=== PATIENT | female | born 1995 | race American Indian/Alaskan Native ===

== ENCOUNTER 2017-08-06 00:02 | Inpatient (IN) | payer MEDICAID ==
[2017-08-06] MEDS ORDERED: Misoprostol 25 MCG (1/4 of 100 MCG) Tab ONE (10:21)
[2017-08-06] MEDS: Misoprostol 25 MCG (1/4 of 100 MCG) Tab VAG SCH ×5 (10:40→22:49)
[2017-08-06] MEDS ORDERED: Sodium Chloride 0.9% 10 ML Syringe FLUSH PRN (10:43)
[2017-08-06] MEDS ORDERED: Oxytocin/Lactated Ringers 20 UNIT/1,000 ML BAG IV SCH (11:15)
[2017-08-06] MEDS ORDERED: diphenhydrAMINE 50 MG/ML SDV IVPUSH PRN (12:28)
[2017-08-06] MEDS ORDERED: ePHEDrine 50 MG/ML SDV IVPUSH PRN (12:28)
[2017-08-06] MEDS ORDERED: fentaNYL 100 MCG/2 ML SDV EPIDUR PRN (12:28)
[2017-08-06] MEDS ORDERED: Ondansetron 4 MG/2 ML SDV IVPUSH PRN (12:28)
--- NOTE | 2017-08-06 12:31 | PCM.PREANE ---
Preanesthetic Assessment - Anesthesia/Transfusion/Family Hx Anesthesia History: No Prior Anesthesia Family History of Anesthesia Reaction: No Transfusion History: No Prior Transfusion(s) - Review of Systems General: No Symptoms Pulmonary: No Symptoms Cardiovascular: No Symptoms Gastrointestinal: Other (Heart burn with ) Neurological: No Symptoms Other: Reports: None - Physical Assessment Respiratory Rate: 16 Vital Signs: Last Vital Signs Temp 36.3 C 08/06/17 10:19 Pulse 105 H 08/06/17 10:19 Resp 16 08/06/17 10:19 BP 130/89 08/06/17 10:19 Pulse Ox Height: 1.65 m Weight: 105.097 kg ASA Class: 2 Mental Status: Alert & Oriented x3 Airway Class: Mallampati = 1 Dentition: Reports: Normal Dentition Thyro-Mental Finger Breadths: 3 Mouth Opening Finger Breadths: 3 ROM/Head Extension: Full Lungs: Clear to Auscultation, Normal Respiratory Effort Cardiovascular: Regular Rate, Regular Rhythm - Lab Values: Laboratory Last Values WBC 9.34 K/mm3 (3.98-10.04) 08/06/17 11:06 RBC 4.18 M/mm3 (3.98-5.22) 08/06/17 11:06 Hgb 12.8 gm/L (11.2-15.7) 08/06/17 11:06 Hct 37.2 % (34.1-44.9) 08/06/17 11:06 MCV 89.0 fl (79.4-94.8) 08/06/17 11:06 MCH 30.6 pg (25.6-32.2) 08/06/17 11:06 MCHC 34.4 g/dl (32.2-35.5) 08/06/17 11:06 RDW Std Deviation 40.3 fL (36.4-46.3) 08/06/17 11:06 Plt Count 185 K/mm3 (182-369) 08/06/17 11:06 MPV 11.9 fl (9.4-12.3) 08/06/17 11:06 Neut % (Auto) 79.7 % (34.0-71.1) H 08/06/17 11:06 Lymph % (Auto) 14.1 % (19.3-51.7) L 08/06/17 11:06 Angelina % (Auto) 5.5 % (4.7-12.5) 08/06/17 11:06 Eos % (Auto) 0.3 (0.7-5.8) L 08/06/17 11:06 Baso % (Auto) 0.1 % (0.1-1.2) 08/06/17 11:06 Neut # (Auto) 7.44 K/mm3 (1.56-6.13) H 08/06/17 11:06 Lymph # (Auto) 1.32 K/mm3 (1.18-3.74) 08/06/17 11:06 Angelina # (Auto) 0.51 K/mm3 (0.24-0.36) H 08/06/17 11:06 Eos # (Auto) 0.03 K/mm3 (0.04-0.36) L 08/06/17 11:06 Baso # (Auto) 0.01 K/mm3 (0.01-0.08) 08/06/17 11:06 - Allergies Allergies/Adverse Reactions: Allergies Allergy/AdvReac Type Severity Reaction Status Date / Time No Known Allergies Allergy Verified 08/06/17 10:42 - Acknowledgements Anesthesia Type Planned: Epidural Pt an Appropriate Candidate for the Planned Anesthesia: Yes Alternatives and Risks of Anesthesia Discussed w Pt/Guardian: Yes Pt/Guardian Understands and Agrees with Anesthesia Plan: Yes PreAnesthesia Questionnaire Gastrointestinal History: Reports: GERD, Other (See Below) 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: - SUBSTANCE USE Smoking Status *Q: Never Smoker Recreational Drug Use History: Yes Recreational Drug Type: Reports: Marijuana/Hashish - HOME MEDS Home Medications: Home Meds Calcium Carbonate [Tums] 750 mg PO 08/06/17 [History] Vits #93/Iron Fum/FA [ Formula Tablet] 08/06/17 [History] Ranitidine [Zantac] 150 mg .XX 08/06/17 [History] - CURRENT (IN HOUSE) MEDS Current Meds: Current Medications Diphenhydramine HCl (Benadryl) 25 mg IVPUSH Q6H PRN PRN Reason: Pruritis Ephedrine Sulfate (Ephedrine Sulfate) 5 mg IVPUSH ASDIRECTED PRN PRN Reason: Hypotension Fentanyl (Sublimaze) 100 mcg EPIDUR ONETIME PRN PRN Reason: Pain Fentanyl/Bupivacaine HCl (Fentanyl/Bupivacaine/Ns 2 Mcg-0.125% 100 Ml) 100 ml EPIDUR ASDIRECTED ALLYSSA Lactated Ringer's (Ringers, Lactated) 1,000 mls @ 100 mls/hr IV ASDIRECTED ALLYSSA Oxytocin/Lactated Ringer's (Pitocin In Lr 20 Units/1,000 Ml) 20 unit in 1,000 mls @ 500 mls/hr IV TITRATE ALLYSSA PRN Reason: Protocol Misoprostol (Cytotec) 25 mcg VAG Q3H [facility] Stop: 08/06/17 16:41 Last Admin: 08/06/17 10:40 Dose: 25 mcg Ondansetron HCl (Zofran) 4 mg IVPUSH ONETIME PRN PRN Reason: Nausea/Vomiting Sodium Chloride (Saline Flush) 10 ml FLUSH ASDIRECTED PRN PRN Reason: Keep Vein Open Discontinued Medications Misoprostol (Cytotec) Confirm Administered Dose 25 mcg .ROUTE .[facility] Stop: 08/06/17 10:22 Last Admin: 08/06/17 10:54 Dose: Not Given
--- NOTE | 2017-08-06 13:16 | PCM.SN ---
- Free Text/Narrative Note: Cervix 0-1/50/S/P/V-3 Cat I FHR. First Cytotec 25 mcg placed at 1041.
--- NOTE | 2017-08-06 13:22 | PCM.LDHP ---
<Diego Brand - Last Filed: 08/06/17 13:14> L&D History of Present Illness - General Date of Service: 08/06/17 Admit Problem/Dx: Patient Status Order with Admit Dx/Problem 08/06/17 10:43 Patient Status [ADT] Routine Admission Diagnosis/Problem Admission Diagnosis/Problem Source of Information: Patient History Limitations: Reports: No Limitations - History of Present Illness Introduction:: Nancy Martinez is pleasant 22 year old female with an CANDIDA of 07/31/2017 who presents to labor and delivery for induction. She is estimated to be at 40 weeks 6 days gestation. GBS was tested on 07/31/17 and the results were negative. She denies having any contractions this morning but does report that she noticed the onset of abdominal pain that she describes as dull and rates as a 2 out of 10. She denies any vaginal bleeding and reports she has not noticed any leakage of fluid. 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: Social & Family History - Family History HEENT: Reports: None Cardiac: Reports: None Respiratory: Reports: None GI: Reports: None : Reports: None OBGYN: Reports: None Musculoskeletal: Reports: None Neurological: Reports: None Psychiatric: Reports: None Endocrine/Metabolic: Reports: None Hematologic: Reports: None Immunologic: Reports: None Dermatologic: Reports: None Oncologic: Reports: None - Tobacco Use Smoking Status *Q: Never Smoker - Recreational Drug Use Recreational Drug Use: Yes Drug Use in Last 12 Months: Yes Recreational Drug Type: Reports: Marijuana/Hashish H&P Review of Systems - Review of Systems: General: Reports: Fatigue Pulmonary: Reports: Shortness of Breath Cardiovascular: Reports: No Symptoms Gastrointestinal: Reports: Abdominal Pain (Nancy reports onset of abdominal pain and discomfort that started this am. She describes the pain as dull, rates it as a 2/10, and denies any radiation fo the pain elsewhere) Genitourinary: Reports: No Symptoms Musculoskeletal: Reports: No Symptoms Skin: Reports: No Symptoms Psychiatric: Reports: No Symptoms (Patient denies any depression or anxiety) Neurological: Reports: No Symptoms L&D Exam - Vital Signs Vital Signs: Last Vital Signs Temp 97.3 F 08/06/17 10:19 Pulse 105 H 08/06/17 10:19 Resp 16 08/06/17 12:31 BP 130/89 08/06/17 10:19 Pulse Ox Weight: 231 lb 11.2 oz - OB Specific Fundal Height In cm: 40 Movement: Active Heart Tones: Present Heart Tones per Min: 140 Heart Rate (FHR) Variability: Moderate (6-25 bmp) - Exam General: Alert, Oriented HEENT: Conjunctiva Clear, EACs Clear, EOMI, Hearing Intact, Mucosa Moist & [place] , Posterior Pharynx Clear, Pupils Equal, Pupils Reactive, PERRLA Neck: Supple, Trachea Midline Lungs: Clear to Auscultation, Normal Respiratory Effort Cardiovascular: Regular Rate, Regular Rhythm GI/Abdominal Exam: Normal Bowel Sounds, Soft, Non-Tender, No Organomegaly, No Distention, No Mass Back Exam: Normal Inspection, Full Range of Motion Extremities: Normal Inspection, Normal Range of Motion, Non-Tender, Pedal Edema Skin: Warm, Dry, Intact Neurological: Reflexes Equal Bilateral, Normal Speech, Normal Tone DTR: 2+: Bicep (L), Bicep (R), Tricep (L), Tricep (R), Patella (L), Patella (R) Psychiatric: Alert, Normal Affect, Normal Mood - Patient Data Lab Results Last 24 hrs: Laboratory Results - last 24 hr 08/06/17 Range/Units 11:06 WBC 9.34 (3.98-10.04) K/mm3 RBC 4.18 (3.98-5.22) M/mm3 Hgb 12.8 (11.2-15.7) gm/L Hct 37.2 (34.1-44.9) % MCV 89.0 (79.4-94.8) fl MCH 30.6 (25.6-32.2) pg MCHC 34.4 (32.2-35.5) g/dl RDW Std Deviation 40.3 (36.4-46.3) fL Plt Count 185 (182-369) K/mm3 MPV 11.9 (9.4-12.3) fl Neut % (Auto) 79.7 H (34.0-71.1) % Lymph % (Auto) 14.1 L (19.3-51.7) % [place] % (Auto) 5.5 (4.7-12.5) % Eos % (Auto) 0.3 L (0.7-5.8) Baso % (Auto) 0.1 (0.1-1.2) % Neut # (Auto) 7.44 H (1.56-6.13) K/mm3 Lymph # (Auto) 1.32 (1.18-3.74) K/mm3 [place] # (Auto) 0.51 H (0.24-0.36) K/mm3 Eos # (Auto) 0.03 L (0.04-0.36) K/mm3 Baso # (Auto) 0.01 (0.01-0.08) K/mm3 Result Diagrams: 08/06/17 11:06 Orders Last 24hrs: Active Orders 24 hr Category Date Time Status Patient Status [ADT] Routine ADT 08/06/17 10:43 Active Activity as Tolerated [RC] PFP Care 08/06/17 10:43 Active Communication Order [RC] ASDIRECTED Care 08/06/17 10:43 Active Heart Tones [RC] ASDIRECTED Care 08/06/17 10:43 Active Insert Ryder Catheter [Insert Urinary Catheter] [OM.PC] Care 08/06/17 10:45 Ordered Q24H Notify Provider [RC] ASDIRECTED Care 08/06/17 12:28 Active Notify Provider [RC] PFP Care 08/06/17 10:43 Active Notify Provider [RC] PRN Care 08/06/17 10:43 Active PCEA Epidural [RC] ASDIRECTED Care 08/06/17 10:45 Active Peripheral IV Care [RC] . DIRECTED Care 08/06/17 10:43 Active Urinary Catheter Assessment [RC] ASDIRECTED Care 08/06/17 10:45 Active Vital Signs [RC] PER UNIT ROUTINE Care 08/06/17 10:43 Active Clear Liquid Diet [DIET] Diet 08/06/17 Lunch Active TYPE AND SCREEN [BBK] Stat Lab 08/06/17 11:06 Received Bupivacaine/fentaNYL/NS [fentaNYL/Bupivacaine/NS 2 MCG- Med 08/06/17 12:30 Active 0.125% 100 ML] 100 ml EPIDUR ASDIRECTED Lactated Ringers [Ringers, Lactated] 1,000 ml Med 08/06/17 10:45 Active IV ASDIRECTED Misoprostol [Cytotec] Med 08/06/17 10:40 Active 25 mcg VAG Q3H Ondansetron [Zofran] Med 08/06/17 12:28 Active 4 mg IVPUSH ONETIME PRN Oxytocin/Lactated Ringers [Pitocin in LR 20 Units/1,000 Med 08/06/17 11:15 Active ML] 20 unit in 1,000 ml IV TITRATE Ranitidine Med 08/06/17 13:15 Unverified DOSE UNIT RTE FREQ Sodium Chloride 0.9% [Saline Flush] Med 08/06/17 10:43 Active 10 ml FLUSH ASDIRECTED PRN diphenhydrAMINE [Benadryl] Med 08/06/17 12:28 Active 25 mg IVPUSH Q6H PRN ePHEDrine [ePHEDrine Sulfate] Med 08/06/17 12:28 Active 5 mg IVPUSH ASDIRECTED PRN fentaNYL [Sublimaze] Med 08/06/17 12:28 Active 100 mcg EPIDUR ONETIME PRN Electronic Heart Tones Ext w TOCO [WOMSER] Oth 08/06/17 10:43 Ordered Routine Electronic Heart Tones Internal [WOMSER] Per Unit Oth 08/06/17 10:43 Ordered Routine Peripheral IV Insertion Adult [OM.PC] Routine Oth 08/06/17 10:43 Ordered Resuscitation Status Routine Resus Stat 08/06/17 10:43 Ordered Medication Orders Diphenhydramine HCl (Benadryl) 25 mg IVPUSH Q6H PRN PRN Reason: Pruritis Ephedrine Sulfate (Ephedrine Sulfate) 5 mg IVPUSH ASDIRECTED PRN PRN Reason: Hypotension Fentanyl (Sublimaze) 100 mcg EPIDUR ONETIME PRN PRN Reason: Pain Fentanyl/Bupivacaine HCl (Fentanyl/Bupivacaine/Ns 2 Mcg-0.125% 100 Ml) 100 ml EPIDUR ASDIRECTED ALLYSSA Lactated Ringer's (Ringers, Lactated) 1,000 mls @ 100 mls/hr IV ASDIRECTED ALLYSSA Oxytocin/Lactated Ringer's (Pitocin In Lr 20 Units/1,000 Ml) 20 unit in 1,000 mls @ 500 mls/hr IV TITRATE ALLYSSA PRN Reason: Protocol Misoprostol (Cytotec) 25 mcg VAG Q3H [facility] Stop: 08/06/17 22:41 Last Admin: 08/06/17 10:40 Dose: 25 mcg Ondansetron HCl (Zofran) 4 mg IVPUSH ONETIME PRN PRN Reason: Nausea/Vomiting Sodium Chloride (Saline Flush) 10 ml FLUSH ASDIRECTED PRN PRN Reason: Keep Vein Open <Lamonte Cheng - Last Filed: 08/06/17 19:37> L&D History of Present Illness - General Admit Problem/Dx: Patient Status Order with Admit Dx/Problem 08/06/17 10:43 Patient Status [ADT] Routine Admission Diagnosis/Problem Admission Diagnosis/Problem Source of Information: Patient History Limitations: Reports: No Limitations - History of Present Illness Improves with: Reports: None Worsens with: Reports: None Associated Symptoms: Reports: N Past Medical History : 1 Para: 0 (0000) LMP (Approximate): H&P Review of Systems - Review of Systems: Review Of Systems: See Below General: Reports: No Symptoms HEENT: Reports: No Symptoms Pulmonary: Reports: No Symptoms Cardiovascular: Reports: No Symptoms Gastrointestinal: Reports: No Symptoms Genitourinary: Reports: No Symptoms Musculoskeletal: Reports: No Symptoms Skin: Reports: No Symptoms Psychiatric: Reports: No Symptoms Neurological: Reports: No Symptoms Hematologic/Lymphatic: Reports: No Symptoms Immunologic: Reports: No Symptoms L&D Exam - Exam Exam: See Below - Vital Signs Vital Signs: Last Vital Signs Temp 97.3 F 08/06/17 10:19 Pulse 105 H 08/06/17 10:19 Resp 16 08/06/17 12:31 BP 130/89 08/06/17 10:19 Pulse Ox - Patient Data Lab Results Last 24 hrs: Laboratory Results - last 24 hr 03/01/18 03/01/18 03/01/18 Range/Units 11:06 11:06 17:27 WBC 9.34 (3.98-10.04) K/mm3 RBC 4.18 (3.98-5.22) M/mm3 Hgb 12.8 (11.2-15.7) gm/L Hct 37.2 (34.1-44.9) % MCV 89.0 (79.4-94.8) fl MCH 30.6 (25.6-32.2) pg MCHC 34.4 (32.2-35.5) g/dl RDW Std Deviation 40.3 (36.4-46.3) fL Plt Count 185 (182-369) K/mm3 MPV 11.9 (9.4-12.3) fl Neut % (Auto) 79.7 H (34.0-71.1) % Lymph % (Auto) 14.1 L (19.3-51.7) % [place] % (Auto) 5.5 (4.7-12.5) % Eos % (Auto) 0.3 L (0.7-5.8) Baso % (Auto) 0.1 (0.1-1.2) % Neut # (Auto) 7.44 H (1.56-6.13) K/mm3 Lymph # (Auto) 1.32 (1.18-3.74) K/mm3 [place] # (Auto) 0.51 H (0.24-0.36) K/mm3 Eos # (Auto) 0.03 L (0.04-0.36) K/mm3 Baso # (Auto) 0.01 (0.01-0.08) K/mm3 PT (8.0-13.0) SECONDS INR Fibrinogen (200-400) mg/dL Fibrin Degrad Products (<5) ug/mL Sodium 137 (136-145) mEq/L Potassium 3.7 (3.5-5.1) mEq/L Chloride 104 (98-107) mEq/L Carbon Dioxide 21 (21-32) mEq/L Anion Gap 15.7 H (5-15) BUN 6 L (7-18) mg/dL Creatinine 0.8 (0.55-1.02) mg/dL Est Cr Clr Drug Dosing 100.10 mL/min Estimated GFR (MDRD) > 60 (>60) mL/min BUN/Creatinine Ratio 7.5 L (14-18) Glucose 110 H (74-106) mg/dL Uric Acid 5.3 (2.6-6.0) mg/dL Calcium 9.1 (8.5-10.1) mg/dL Blood Type O POSITIVE Gel Antibody Screen Negative 08/06/17 08/06/17 Range/Units 17:27 17:27 WBC (3.98-10.04) K/mm3 RBC (3.98-5.22) M/mm3 Hgb (11.2-15.7) gm/L Hct (34.1-44.9) % MCV (79.4-94.8) fl MCH (25.6-32.2) pg MCHC (32.2-35.5) g/dl RDW Std Deviation (36.4-46.3) fL Plt Count (182-369) K/mm3 MPV (9.4-12.3) fl Neut % (Auto) (34.0-71.1) % Lymph % (Auto) (19.3-51.7) % [place] % (Auto) (4.7-12.5) % Eos % (Auto) (0.7-5.8) Baso % (Auto) (0.1-1.2) % Neut # (Auto) (1.56-6.13) K/mm3 Lymph # (Auto) (1.18-3.74) K/mm3 [place] # (Auto) (0.24-0.36) K/mm3 Eos # (Auto) (0.04-0.36) K/mm3 Baso # (Auto) (0.01-0.08) K/mm3 PT 9.5 (8.0-13.0) SECONDS INR 0.89 Fibrinogen 538.1 H (200-400) mg/dL Fibrin Degrad Products < 5 ug/ml (<5) ug/mL Sodium (136-145) mEq/L Potassium (3.5-5.1) mEq/L Chloride (98-107) mEq/L Carbon Dioxide (21-32) mEq/L Anion Gap (5-15) BUN (7-18) mg/dL Creatinine (0.55-1.02) mg/dL Est Cr Clr Drug Dosing mL/min Estimated GFR (MDRD) (>60) mL/min BUN/Creatinine Ratio (14-18) Glucose (74-106) mg/dL Uric Acid (2.6-6.0) mg/dL Calcium (8.5-10.1) mg/dL Blood Type Gel Antibody Screen Result Diagrams: 08/06/17 11:06 08/06/17 17:27 - Problem List (1) 41 weeks gestation of SNOMED Code(s): 09587230 ICD Code: Z3A.41 - 41 WEEKS GESTATION OF Status: Acute Current Visit: Yes Problem List Initiated/Reviewed/Updated: No Orders Last 24hrs: Active Orders 24 hr Category Date Time Status Patient Status [ADT] Routine ADT 08/06/17 10:43 Active Activity as Tolerated [RC] PFP Care 08/06/17 10:43 Active Communication Order [RC] ASDIRECTED Care 08/06/17 10:43 Active Heart Tones [RC] ASDIRECTED Care 08/06/17 10:43 Active Insert Ryder Catheter [Insert Urinary Catheter] [OM.PC] Care 08/06/17 10:45 Ordered Q24H Notify Provider [RC] ASDIRECTED Care 08/06/17 12:28 Active Notify Provider [RC] PFP Care 08/06/17 10:43 Active Notify Provider [RC] PRN Care 08/06/17 10:43 Active PCEA Epidural [RC] ASDIRECTED Care 08/06/17 10:45 Active Peripheral IV Care [RC] . DIRECTED Care 08/06/17 10:43 Active Urinary Catheter Assessment [RC] ASDIRECTED Care 08/06/17 10:45 Active Vital Signs [RC] PER UNIT ROUTINE Care 08/06/17 10:43 Active Clear Liquid Diet [DIET] Diet 08/06/17 Lunch Active Bupivacaine/fentaNYL/NS [fentaNYL/Bupivacaine/NS 2 MCG- Med 08/06/17 12:30 Active 0.125% 100 ML] 100 ml EPIDUR ASDIRECTED Lactated Ringers [Ringers, Lactated] 1,000 ml Med 08/06/17 10:45 Active IV ASDIRECTED Misoprostol [Cytotec] Med 08/06/17 10:40 Active 25 mcg VAG Q3H Ondansetron [Zofran] Med 08/06/17 12:28 Active 4 mg IVPUSH ONETIME PRN Oxytocin/Lactated Ringers [Pitocin in LR 20 Units/1,000 Med 08/06/17 11:15 Active ML] 20 unit in 1,000 ml IV TITRATE Ranitidine Med 08/06/17 13:15 Unverified DOSE UNIT RTE FREQ Sodium Chloride 0.9% [Saline Flush] Med 08/06/17 10:43 Active 10 ml FLUSH ASDIRECTED PRN diphenhydrAMINE [Benadryl] Med 08/06/17 12:28 Active 25 mg IVPUSH Q6H PRN ePHEDrine [ePHEDrine Sulfate] Med 08/06/17 12:28 Active 5 mg IVPUSH ASDIRECTED PRN fentaNYL [Sublimaze] Med 08/06/17 12:28 Active 100 mcg EPIDUR ONETIME PRN Electronic Heart Tones Ext w TOCO [WOMSER] Oth 08/06/17 10:43 Ordered Routine Electronic Heart Tones Internal [WOMSER] Per Unit Oth 08/06/17 10:43 Ordered Routine Peripheral IV Insertion Adult [OM.PC] Routine Oth 08/06/17 10:43 Ordered Resuscitation Status Routine Resus Stat 08/06/17 10:43 Ordered Medication Orders Diphenhydramine HCl (Benadryl) 25 mg IVPUSH Q6H PRN PRN Reason: Pruritis Ephedrine Sulfate (Ephedrine Sulfate) 5 mg IVPUSH ASDIRECTED PRN PRN Reason: Hypotension Fentanyl (Sublimaze) 100 mcg EPIDUR ONETIME PRN PRN Reason: Pain Fentanyl/Bupivacaine HCl (Fentanyl/Bupivacaine/Ns 2 Mcg-0.125% 100 Ml) 100 ml EPIDUR ASDIRECTED ALLYSSA Lactated Ringer's (Ringers, Lactated) 1,000 mls @ 100 mls/hr IV ASDIRECTED ALLYSSA Oxytocin/Lactated Ringer's (Pitocin In Lr 20 Units/1,000 Ml) 20 unit in 1,000 mls @ 500 mls/hr IV TITRATE ALLYSSA PRN Reason: Protocol Misoprostol (Cytotec) 25 mcg VAG Q3H [facility] Stop: 08/06/17 22:41 Last Admin: 08/06/17 16:46 Dose: 25 mcg Admin: 08/06/17 13:40 Dose: 25 mcg Admin: 08/06/17 10:40 Dose: 25 mcg Ondansetron HCl (Zofran) 4 mg IVPUSH ONETIME PRN PRN Reason: Nausea/Vomiting Sodium Chloride (Saline Flush) 10 ml FLUSH ASDIRECTED PRN PRN Reason: Keep Vein Open Assessment/Plan Comment:: patient seen, examined by me and discussed with student.
--- NOTE | 2017-08-06 19:39 | PCM.SN ---
- Free Text/Narrative Note: Fourth Cytotec 25 mcg placed vertex -3, cervix unchanged. Another cytotec at 2245 and then start pitocing at 0145.
[2017-08-07] MEDS ORDERED: Oxytocin/Lactated Ringers 10 UNIT/1,000 ML BAG IV SCH (02:00)
[2017-08-07] MEDS: Lactated Ringers 1,000 ML IV SCH ×6 (02:06→23:08)
[2017-08-07] MEDS: Nalbuphine 20 MG/1 ML Amp IVPUSH PRN ×2 (05:13→08:27)
--- NOTE | 2017-08-07 07:16 | PCM.SN ---
- Free Text/Narrative Note: Cervix is 1-2 cm dilated, 100% effaced, soft, posterior, cephalic presentation - 1 station. Spontaneous rupture membranes at 0700 hrs. 08/07/17 with meconium staining.
[2017-08-07] MEDS: Labetalol 100 MG Tab PO SCH ×2 (09:19→14:54)
--- NOTE | 2017-08-07 09:54 | PCM.SN ---
- Free Text/Narrative Note: Cervix is 3 cm dilated 100% effaced mid position soft vertex -1 category 1 heart rate internal uterine activity catheter placed without difficulty. weighed 11 pounds's brother weighed 12 pounds at delivery patient weighed 6 pounds at delivery
[2017-08-07] MEDS: Bupivacaine/fentaNYL/NS 100 ML Bag EPIDUR SCH ×2 (12:09→20:24)
[2017-08-07] MEDS ORDERED: Oxytocin/Lactated Ringers 20 UNIT/1,000 ML BAG IV SCH (15:00)
--- NOTE | 2017-08-07 20:02 | PCM.PNLD ---
Labor Progress Note - VS & Meds Vital Signs: Last Vital Signs Temp 36.3 C 08/06/17 10:19 Pulse 89 08/07/17 09:19 Resp 16 08/06/17 12:31 BP 116/76 08/07/17 14:54 Pulse Ox Active Medications: Current Medications Diphenhydramine HCl (Benadryl) 25 mg IVPUSH Q6H PRN PRN Reason: Pruritis Ephedrine Sulfate (Ephedrine Sulfate) 5 mg IVPUSH ASDIRECTED PRN PRN Reason: Hypotension Fentanyl (Sublimaze) 100 mcg EPIDUR ONETIME PRN PRN Reason: Pain Last Admin: 08/07/17 12:08 Dose: 100 mcg Fentanyl/Bupivacaine HCl (Fentanyl/Bupivacaine/Ns 2 Mcg-0.125% 100 Ml) 100 ml EPIDUR ASDIRECTED ALLYSSA Last Admin: 08/07/17 12:09 Dose: 100 ml Lactated Ringer's (Ringers, Lactated) 1,000 mls @ 100 mls/hr IV ASDIRECTED ALLYSSA Last Admin: 08/07/17 15:08 Dose: 100 mls/hr Oxytocin/Lactated Ringer's (Pitocin In Lr 20 Units/1,000 Ml) 20 unit in 1,000 mls @ 500 mls/hr IV TITRATE ALLYSSA PRN Reason: Protocol Oxytocin/Lactated Ringer's (Pitocin In Lr 10 Units/1,000 Ml) 10 unit in 1,000 mls @ 12 mls/hr IV TITRATE ALLYSSA; 2 MUNITS/MIN PRN Reason: Protocol Last Titration: 08/07/17 14:06 Dose: 20 munits/min, 120 mls/hr Oxytocin/Lactated Ringer's (Pitocin In Lr 20 Units/1,000 Ml) 20 unit in 1,000 mls @ 66 mls/hr IV TITRATE ALLYSSA; 22 MUNITS/MIN PRN Reason: Protocol Last Admin: 08/07/17 15:08 Dose: 66 mls/hr Labetalol HCl (Normodyne) 100 mg PO Q6H ALLYSSA Last Admin: 08/07/17 14:54 Dose: Not Given Nalbuphine HCl (Nubain) 10 mg IVPUSH Q2H PRN PRN Reason: pain Last Admin: 08/07/17 08:27 Dose: 10 mg Ondansetron HCl (Zofran) 4 mg IVPUSH ONETIME PRN PRN Reason: Nausea/Vomiting Sodium Chloride (Saline Flush) 10 ml FLUSH ASDIRECTED PRN PRN Reason: Keep Vein Open Discontinued Medications Misoprostol (Cytotec) Confirm Administered Dose 25 mcg .ROUTE .[facility] ONE Stop: 08/06/17 10:22 Last Admin: 08/06/17 10:54 Dose: Not Given Misoprostol (Cytotec) 25 mcg VAG Q3H ALLYSSA Stop: 08/06/17 22:41 Last Admin: 08/06/17 22:49 Dose: 25 mcg - Uterine Contractions Uterine Monitoring Mode: IUPC (Not picking up) - Monitoring Monitor Mode: External Ultrasound Heart Rate (FHR) Baseline: 150 Heart Rate (FHR) Variability: Moderate (6-25 bmp) Accelerations: Present, 15x15 Decelerations: None Strip Review: Category I - Vaginal Exam Dilation (cm): 8-9 Effacement (Percent): 100 Station: 0 Cervical Position: Anterior Vaginal Exam Comment: Significant amout of caput - Labor Progress (Free Text) Labor Progress: Patient is a post dates induction. Had induction started yesterday AM with cytotec. Received 5 doses. Pitocin started around 0200 this AM. Had SROM at 0700. Was about 4-5 cm at 1500. Was then 6-7 cm at 1800. Currently 8-9, but with significant caput and station high. OP presentation confirmed with bedside US. Attempted to put patient in hands and knees, but dense epidural precludes this. Placed in significant roll. Will re-check in about 2 hours. Patient and family agree with this plan.
[2017-08-07] MEDS ORDERED: Bupivacaine 0.25% 10 ML SDV ONE (22:22)
[2017-08-07] MEDS ORDERED: Acetaminophen 325 MG Tab PO ONE (22:26)
[2017-08-07] MEDS ORDERED: Lactated Ringers 1,000 ML ONE (22:39)
[2017-08-07] MEDS: Ampicillin 2 GM in Sodium Chloride 0.9% 100 ML IV SCH (22:47)
[2017-08-07] MEDS ORDERED: Citric Acid/Sodium Citrate Solution 30 ML Cup PO ONE (23:19)
[2017-08-07] MEDS ORDERED: Metoclopramide 10 MG/2 ML SDV IVPUSH ONE (23:19)
[2017-08-07] MEDS ORDERED: ceFAZolin 2 GM in Premix Bag 1 BAG IV ONE (23:19)
[2017-08-07] MEDS ORDERED: Clindamycin Phosphate 900 MG in Sodium Chloride 0.9% 100 ML IV ONE (23:19)
[2017-08-07] MEDS ORDERED: Clindamycin Phosphate 900 MG/6 ML AdvVial ONE (23:22)
--- NOTE | 2017-08-07 23:30 | PCM.SN ---
- Free Text/Narrative Note: 2315 Received call from L&D at 2145 that baby with shift in HR to 175/180. No signs of temperature per nursing staff. Patient otherwise complete. Began pushing at 2345. Presented to L&D at 2215. Patient now with temperature to 100.5. Amp /Gent started and tylenol given. Pushing and with good effort, but baby OP presentation and still 0 station. During pushing effort FHR began to climb and now in 200's fairly consistently and with less variability. Discussed with patient that I am concerned given high station, presentation that we will not be able to achieve a vaginal delivery for many hours if able to achieve at all. Discussed that during that time frame my concern is that infection could worsen for her and her baby. Do recommend proceeding with a and she agrees. OR crew, pediatrics, and anesthesia alerted. Tammy Leavitt MD
[2017-08-08] MEDS ORDERED: Misoprostol 200 MCG Tab ONE (00:02)
[2017-08-08] MEDS ORDERED: ceFAZolin 1 GM Vial ONE (00:02)
[2017-08-08] MEDS ORDERED: Lidocaine 2% with EPINEPHrine 1:200,000 20 ML SDV ONE (00:02)
[2017-08-08] MEDS ORDERED: Methylergonovine 0.2 MG/1 ML Amp ONE (00:05)
[2017-08-08] MEDS ORDERED: Carboprost Tromethamine 250 MCG/1 ML Amp ONE (00:05)
[2017-08-08] MEDS ORDERED: Lactated Ringers 1,000 ML ONE ×2 (00:14→00:50)
[2017-08-08] MEDS ORDERED: Ketorolac 30 MG/ML SDV ONE (00:14)
[2017-08-08] MEDS ORDERED: Oxytocin 10 Units/1 ML SDV ONE (00:14)
[2017-08-08] MEDS ORDERED: Esmolol 100 MG/10 ML SDV ONE (00:33)
--- NOTE | 2017-08-08 00:37 | PCM.OPNOTE ---
- General Post-Op/Procedure Note Date of Surgery/Procedure: 08/08/17 Operative Procedure(s): Primary low transverse Findings: Baby boy in a vertex presentation - ROP. Weight of 9 pounds 3 oz. APGARS of 9 & 9. Normal appearance of the uterus, fallopian tubes, and ovaries. Pre Op Diagnosis: 41 weeks gestation. Chorioamnionitis. Failure to progress in 2nd stage Post-Op Diagnosis: Same. PPH treated with cytotec and hemabate. 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 Safety for patient/speed of procedure. Pathology: Cord blood collected. Cord segment collected. Placenta sent to pathology Fluid Replacement, Intraop: 3,000 Output, Urine Amount: 40 EBL in mLs: 1,800 Complications: None Condition: Good Free Text/Narrative:: The risks, benefits, indications, potential complications, and alternatives were explained to the patient and informed consent obtained. After induction of anesthesia, the patient was placed in a supine position and then draped and prepped in the usual sterile manner. A Pfannenstiel incision was made and carried down through the subcutaneous tissue to the fascia. Fascial incision was made and extended transversely. The fascia was from the underlying rectus tissue superiorly and inferiorly. The peritoneum was identified and entered. Peritoneal incision was extended longitudinally. The utero-vesical peritoneal reflection was incised transversely and the bladder flap was bluntly freed from the lower uterine segment. A low transverse uterine incision was made sharply with a scalpel and extended bluntly in a cephalocaudad direction. A baby boy was delivered from vertex presentation with APGARS as above. After the umbilical cord was clamped and cut cord blood was obtained for evaluation. The placenta was removed intact and appeared normal. The uterus was exteriorized and cleared of clots. The uterine outline, tubes and ovaries appeared normal. The uterine incision was closed with running locked sutures of 0 Vicryl. Hemostasis was obtained with a second imbricating layer of 0 vicryl. The uterus was then placed back into the abdomen. Poor tone noted. She was given Cytotec for this and eventually hemabate. The infracolic gutters were cleared of blood clots. The fascia was then reapproximated with running sutures of 0 Vicryl. The sucutaneous tissue was irrigated with sterile warm normal saline, hemostasis obtained with cautery. This layer was closed with a running 0 vicryl. The skin was reapproximated with running Subcuticular 4-0 monocryl sutures. Instrument, sponge, and needle counts were correct prior the abdominal closure and at the conclusion of the case. Next vaginal exam done due to fundal height being about 2 cm above uterus. A large amount of clot and blood, at least 250 cc, able to be released from lower uterine segment. Uterine tone greatly improved after this intervention.
[2017-08-08] MEDS ORDERED: Meperidine PF 50 MG/ML Syringe ONE (00:57)
[2017-08-08] MEDS ORDERED: Morphine PF 10 MG/10 ML SDV ONE (00:57)
[2017-08-08] MEDS: Meperidine PF 50 MG/ML Syringe IVPUSH SCH ×2 (01:03→06:47)
[2017-08-08] MEDS ORDERED: Labetalol 100 MG/20 ML MDV ONE (01:07)
[2017-08-08] MEDS ORDERED: fentaNYL 250 MCG/5 ML SDV IVPUSH PRN (01:11)
[2017-08-08] MEDS ORDERED: diphenhydrAMINE 50 MG/ML SDV IVPUSH PRN ×2 (01:11→01:55)
--- NOTE | 2017-08-08 01:14 | PCM.POSTAN ---
POST ANESTHESIA ASSESSMENT - MENTAL STATUS Mental Status: Alert, Oriented - VITAL SIGNS Pulse Rate: 144 SaO2: 100 Resp Rate: 23 Blood Pressure: 128/112 Temperature: 36.7 C - RESPIRATORY Respiratory Status: Respiratory Rate WNL, Airway Patent, O2 Saturation Stable, Supplemental Oxygen, Elevated Respiratory Rate - CARDIOVASCULAR CV Status: Elevated Pulse Rate, Elevated Blood Pressure - GASTROINTESTINAL GI Status: [place] - PAIN Pain Score: 0 - POST OP HYDRATION Hydration Status: Adequate & Stable
[2017-08-08] MEDS ORDERED: Lanolin 100% Cream 7 GM Tube TOP PRN (01:55)
[2017-08-08] MEDS ORDERED: Ondansetron 4 MG/2 ML SDV IV PRN (01:55)
[2017-08-08] MEDS ORDERED: Dextrose 5%-Lactated Ringers 1,000 ML IV SCH (01:55)
[2017-08-08] MEDS: Ampicillin 2 GM in Sodium Chloride 0.9% 100 ML IV SCH ×4 (04:28→22:11)
[2017-08-08] MEDS: Labetalol 100 MG Tab PO SCH (06:50)
[2017-08-08] MEDS ORDERED: Lactated Ringers 1,000 ML IV ONE (07:29)
--- NOTE | 2017-08-08 07:32 | PCM.SN ---
- Free Text/Narrative Note: Patient with 325 cc of UOP since about 0200 this AM. HR mostly 110's overnight. Now this AM after exam 130's. Hb now significantly dropped, only 10.3. Will give another 1 L of fluid. Continue antibiotics for after chorio (amp/gent/clinda) and repeat CBC in PM around 1600. Tammy Leavitt MD
[2017-08-08] MEDS: Clindamycin Phosphate 900 MG in Sodium Chloride 0.9% 100 ML IV SCH ×3 (09:16→23:21)
--- NOTE | 2017-08-08 09:34 | PCM48HPAN ---
Post Anesthesia Note - EVALUATION WITHIN 48HRS OF ANESTHETIC Vital Signs in Normal Range: No (elevated pulse) Patient Participated in Evaluation: Yes Respiratory Function Stable: Yes Airway Patent: Yes Cardiovascular Function Stable: Yes Hydration Status Stable: Yes Pain Control Satisfactory: Yes Nausea and Vomiting Control Satisfactory: Yes Mental Status Recovered: Yes Pulse Rate: 123 SaO2: 97 Resp Rate: 14 Temperature: 37.0 C Blood Pressure: 115/72 - COMMENTS/OBSERVATIONS Free Text/Narrative:: continue to monitor, treat with antibiotics, IV fluids per Dr. Martinez
[2017-08-08] MEDS: Acetaminophen/oxyCODONE 325-5 MG Tab PO PRN ×2 (12:00→19:52)
[2017-08-09] MEDS: Ampicillin 2 GM in Sodium Chloride 0.9% 100 ML IV SCH (03:41)
[2017-08-09] MEDS: Ibuprofen 600 MG Tab PO PRN ×3 (03:54→18:39)
--- NOTE | 2017-08-09 07:53 | PCM.PNPP ---
- General Info Date of Service: 08/09/17 Functional Status: Reports: Pain Controlled, Tolerating Diet, Ambulating, Urinating - Review of Systems General: Reports: No Symptoms Pulmonary: Reports: No Symptoms Cardiovascular: Reports: No Symptoms Gastrointestinal: Reports: No Symptoms Genitourinary: Reports: No Symptoms Musculoskeletal: Reports: No Symptoms - Patient Data Vital Signs - Most Recent: Last Vital Signs Temp 36.6 C 08/09/17 03:42 Pulse 111 H 08/09/17 03:42 Resp 16 08/09/17 03:42 BP 117/77 08/09/17 03:42 Pulse Ox 97 08/09/17 03:42 Weight - Most Recent: 105.097 kg I&O - Last 24 Hours: Intake & Output 08/08/17 08/09/17 08/09/17 22:59 06:59 14:59 Output Total 975 750 Balance -975 -750 Lab Results - Last 24 Hours: Laboratory Results - last 24 hr 08/08/17 08/09/17 Range/Units 16:20 05:45 WBC 14.63 H 10.83 H (3.98-10.04) K/mm3 RBC 3.33 L 3.01 L (3.98-5.22) M/mm3 Hgb 10.2 L 9.1 L (11.2-15.7) gm/L Hct 29.8 L 27.3 L (34.1-44.9) % MCV 89.5 90.7 (79.4-94.8) fl MCH 30.6 30.2 (25.6-32.2) pg MCHC 34.2 33.3 (32.2-35.5) g/dl RDW Std Deviation 39.7 40.7 (36.4-46.3) fL Plt Count 147 L 143 L (182-369) K/mm3 MPV 11.4 11.5 (9.4-12.3) fl Med Orders - Current: Current Medications Diphenhydramine HCl (Benadryl) 25 mg IVPUSH Q6H PRN PRN Reason: Itching Diphenhydramine HCl (Benadryl) 25 mg IVPUSH Q6H PRN PRN Reason: Itching or Nausea Emollient Ointment (Lansinoh Hpa) 0 gm TOP ASDIRECTED PRN PRN Reason: Sore Nipples Fentanyl (Sublimaze) 50 mcg IVPUSH Q5M PRN PRN Reason: PAIN Clindamycin Phosphate 900 mg/ (Sodium Chloride) 106 mls @ 100 mls/hr IV Q8H [facility] Last Admin: 08/08/17 23:21 Dose: 100 mls/hr Ibuprofen (Motrin) 600 mg PO Q6H PRN PRN Reason: Pain Last Admin: 08/09/17 03:54 Dose: 600 mg Ondansetron HCl (Zofran) 4 mg IV Q8H PRN PRN Reason: Nausea/Vomiting Oxycodone/Acetaminophen (Percocet 325-5 Mg) 2 tab PO Q4H PRN PRN Reason: Pain (moderate 4-6) Last Admin: 08/08/17 19:52 Dose: 2 tab Discontinued Medications Acetaminophen (Tylenol) 975 mg PO NOW ONE Stop: 08/07/17 22:27 Last Admin: 08/07/17 22:50 Dose: 975 mg Carboprost Tromethamine (Hemabate Ds) Confirm Administered Dose 250 mcg .ROUTE .STK-MED ONE Stop: 08/08/17 00:06 Cefazolin Sodium (Ancef) Confirm Administered Dose 2 gm .ROUTE .STK-MED ONE Stop: 08/08/17 00:03 Citric Acid/Sodium Citrate (Bicitra Solution) 30 ml PO ONETIME ONE Stop: 08/07/17 23:20 Last Admin: 08/07/17 23:30 Dose: 30 ml Clindamycin Phosphate (Cleocin) Confirm Administered Dose 900 mg .ROUTE .STK- MED ONE Stop: 08/07/17 23:23 Last Admin: 08/08/17 08:15 Dose: Not Given Diphenhydramine HCl (Benadryl) 25 mg IVPUSH Q6H PRN PRN Reason: Pruritis Ephedrine Sulfate (Ephedrine Sulfate) 5 mg IVPUSH ASDIRECTED PRN PRN Reason: Hypotension Esmolol HCl (Esmolol) Confirm Administered Dose 100 mg .ROUTE .STK-MED ONE Stop: 08/08/17 00:34 Fentanyl (Sublimaze) 100 mcg EPIDUR ONETIME PRN PRN Reason: Pain Last Admin: 08/07/17 12:08 Dose: 100 mcg Fentanyl/Bupivacaine HCl (Fentanyl/Bupivacaine/Ns 2 Mcg-0.125% 100 Ml) 100 ml EPIDUR ASDIRECTED [facility] Last Admin: 08/07/17 20:24 Dose: 100 ml Lactated Ringer's (Ringers, Lactated) 1,000 mls @ 100 mls/hr IV ASDIRECTED [facility] Last Admin: 08/07/17 23:08 Dose: 100 mls/hr Oxytocin/Lactated Ringer's (Pitocin In Lr 20 Units/1,000 Ml) 20 unit in 1,000 mls @ 500 mls/hr IV TITRATE [facility] PRN Reason: Protocol Oxytocin/Lactated Ringer's (Pitocin In Lr 10 Units/1,000 Ml) 10 unit in 1,000 mls @ 12 mls/hr IV TITRATE [facility]; 2 MUNITS/MIN PRN Reason: Protocol Last Titration: 08/07/17 14:06 Dose: 20 munits/min, 120 mls/hr Oxytocin/Lactated Ringer's (Pitocin In Lr 20 Units/1,000 Ml) 20 unit in 1,000 mls @ 66 mls/hr IV TITRATE [facility]; 22 MUNITS/MIN PRN Reason: Protocol Last Admin: 08/07/17 15:08 Dose: 66 mls/hr Ampicillin Sodium 2 gm/ Sodium (Chloride) 100 mls @ 200 mls/hr IV Q6H [facility] Last Admin: 08/09/17 03:41 Dose: 200 mls/hr Gentamicin Sulfate 200 mg/ (Sodium Chloride) 105 mls @ 200 mls/hr IV ONETIME ONE Stop: 08/07/17 22:55 Last Admin: 08/07/17 22:56 Dose: 200 mls/hr Lactated Ringer's (Ringers, Lactated) Confirm Administered Dose 1,000 mls @ as directed .ROUTE .STK-MED ONE Stop: 08/07/17 22:40 Last Admin: 08/08/17 06:50 Dose: Not Given Cefazolin Sodium/Dextrose 2 gm (/ Premix) 50 mls @ 100 mls/hr IV ONETIME ONE Stop: 08/07/17 23:48 Last Admin: 08/08/17 08:15 Dose: Not Given Clindamycin Phosphate 900 mg/ (Sodium Chloride) 106 mls @ 100 mls/hr IV ONETIME ONE Stop: 08/08/17 00:22 Last Admin: 08/07/17 23:31 Dose: 100 mls/hr Lactated Ringer's (Ringers, Lactated) Confirm Administered Dose 1,000 mls @ as directed .ROUTE .STK-MED ONE Stop: 08/08/17 00:15 Lactated Ringer's (Ringers, Lactated) Confirm Administered Dose 1,000 mls @ as directed .ROUTE .STK-MED ONE Stop: 08/08/17 00:51 Dextrose/Lactated Ringer's (Dextrose 5%-Lactated Ringers) 1,000 mls @ 125 mls/ hr IV ASDIRECTED [facility] Stop: 08/08/17 09:54 Last Admin: 08/08/17 04:30 Dose: 125 mls/hr Gentamicin Sulfate 150 mg/ (Sodium Chloride) 103.75 mls @ 200 mls/hr IV Q8H [facility] Last Admin: 08/09/17 07:25 Dose: 200 mls/hr Lactated Ringer's (Ringers, Lactated) 1,000 mls @ 1,000 mls/hr IV .[facility]OLUS ONE Stop: 08/08/17 08:28 Last Admin: 08/08/17 08:20 Dose: 1,000 mls/hr Ketorolac Tromethamine (Toradol) Confirm Administered Dose 30 mg .ROUTE .STK- MED ONE Stop: 08/08/17 00:15 Labetalol HCl (Normodyne) 100 mg PO Q6H [facility] Last Admin: 08/08/17 06:50 Dose: Not Given Labetalol HCl (Normodyne) Confirm Administered Dose 100 mg .ROUTE .STK-MED ONE Stop: 08/08/17 01:08 Lidocaine/Epinephrine (Xylocaine-Mpf 2%-Epi 1:200,000) Confirm Administered Dose 20 ml .ROUTE .STK-MED ONE Stop: 08/08/17 00:03 Meperidine HCl (Demerol) Confirm Administered Dose 50 mg .ROUTE .STK-MED ONE Stop: 08/08/17 00:58 Last Admin: 08/08/17 01:12 Dose: 12.5 mg Meperidine HCl (Demerol) 12.5 mg IVPUSH Q15M [facility] Stop: 08/08/17 01:31 Last Admin: 08/08/17 06:47 Dose: Not Given Methylergonovine Maleate (Methergine) Confirm Administered Dose 0.2 mg .ROUTE .STK-MED ONE Stop: 08/08/17 00:06 Last Admin: 08/08/17 00:16 Dose: 0.2 mg Metoclopramide HCl (Reglan) 10 mg IVPUSH ONETIME ONE Stop: 08/07/17 23:20 Last Admin: 08/07/17 23:28 Dose: 10 mg Misoprostol (Cytotec) Confirm Administered Dose 25 mcg .ROUTE .STK-MED ONE Stop: 08/06/17 10:22 Last Admin: 08/06/17 10:54 Dose: Not Given Misoprostol (Cytotec) 25 mcg VAG Q3H [facility] Stop: 08/06/17 22:41 Last Admin: 08/06/17 22:49 Dose: 25 mcg Misoprostol (Cytotec) Confirm Administered Dose 600 mcg .ROUTE .STK-MED ONE Stop: 08/08/17 00:03 Last Admin: 08/08/17 00:14 Dose: 600 mcg Morphine Sulfate (Duramorph Pf) Confirm Administered Dose 10 mg .ROUTE .STK-MED ONE Stop: 08/08/17 00:58 Nalbuphine HCl (Nubain) 10 mg IVPUSH Q2H PRN PRN Reason: pain Last Admin: 08/07/17 08:27 Dose: 10 mg Ondansetron HCl (Zofran) 4 mg IVPUSH ONETIME PRN PRN Reason: Nausea/Vomiting Oxytocin (Pitocin) Confirm Administered Dose 10 unit .ROUTE .STK-MED ONE Stop: 08/08/17 00:15 Sodium Chloride (Saline Flush) 10 ml FLUSH ASDIRECTED PRN PRN Reason: Keep Vein Open - Infant Interaction Disposition, : in Room with Family Infant Interaction: Not Interacting Infant Feeding: Bottle Fed Infant Support Person: Significant Other - Recovery Exam Fundal Tone: Firm Fundal Level: 1 Fingerbreadths Below Umbilicus Fundal Placement: Midline Lochia Amount: Small Lochia Color: Rubra/Red Perineum Description: Intact, Minimal Bruising/Swelling Episiotomy/Laceration: None - Exam General: Alert, Oriented, Cooperative Lungs: Clear to Auscultation, Normal Respiratory Effort Cardiovascular: Regular Rate, Regular Rhythm GI/Abdominal Exam: Soft, Non-Tender Extremities: Normal Inspection Skin: Warm, Dry, Intact Wound/Incisions: Healing Well, No Drainage - Problem List & Annotations (1) Chorioamnionitis SNOMED Code(s): 93941530 Code(s): O41.1290 - CHORIOAMNIONITIS, UNSP TRIMESTER, NOT APPLICABLE OR UNSP Status: Acute Current Visit: Yes Qualifiers: Fetus number: single or unspecified fetus Trimester: third trimester Qualified Code(s): O41.1230 - Chorioamnionitis, third trimester, not applicable or unspecified (2) Failure to progress in second stage of labor SNOMED Code(s): 847158871 Code(s): O62.2 - OTHER UTERINE INERTIA Status: Acute Current Visit: Yes (3) S/P primary low transverse SNOMED Code(s): 901322203, 216418918, 791335218 Code(s): Z98.891 - HISTORY OF UTERINE SCAR FROM PREVIOUS SURGERY Status: Acute Current Visit: Yes (4) 41 weeks gestation of SNOMED Code(s): 75325559 Code(s): Z3A.41 - 41 WEEKS GESTATION OF Status: Acute Current Visit: Yes - Problem List Review Problem List Initiated/Reviewed/Updated: Yes - My Orders Last 24 Hours: My Active Orders 08/08/17 08:00 Clindamycin Phosphate [Cleocin] 900 mg Sodium Chloride 0.9% [Normal Saline] 100 ml IV Q8H 08/08/17 22:40 Ibuprofen [Motrin] 600 mg PO Q6H PRN 08/08/17 Breakfast Regular Diet [DIET] - Assessment Assessment:: 22 y/o G1 now P1001 POD#1 from [facility] at 41 1/7 wks - Plan Plan:: Chorioamnioitis * Finishing 24 hours of amp/gent/clinda this AM. Continue to monitor closely for next 24 hours PPH * Blood count down to 9.1 from 12.6. Patient tolerating well. Defer further lab draws at this time Post op * Routine cares * Discharge home in 1-2 days
[2017-08-09] MEDS: Clindamycin Phosphate 900 MG in Sodium Chloride 0.9% 100 ML IV SCH (08:27)
[2017-08-09] MEDS ORDERED: Measles, Mumps & Rubella Vaccine 0.5 ML SDV SUBCUT ONE (20:11)
[2017-08-10] MEDS: Acetaminophen/oxyCODONE 325-5 MG Tab PO PRN (00:34)
[2017-08-10] MEDS: Ibuprofen 600 MG Tab PO PRN ×2 (04:59→16:22)
--- NOTE | 2017-08-10 07:20 | PCM.PNPP ---
- General Info Date of Service: 08/10/17 Functional Status: Reports: Pain Controlled, Tolerating Diet, Ambulating, Urinating - Review of Systems General: Reports: No Symptoms Pulmonary: Reports: No Symptoms Cardiovascular: Reports: No Symptoms Gastrointestinal: Reports: No Symptoms Genitourinary: Reports: No Symptoms Musculoskeletal: Reports: No Symptoms - Patient Data Vital Signs - Most Recent: Last Vital Signs Temp 36.6 C 08/10/17 04:55 Pulse 96 08/10/17 04:55 Resp 16 08/10/17 04:55 BP 121/79 08/10/17 04:55 Pulse Ox 99 08/10/17 04:55 Weight - Most Recent: 105.097 kg Lab Results - Last 24 Hours: Laboratory Results - last 24 hr 08/09/17 Range/Units 05:45 WBC 10.83 H (3.98-10.04) K/mm3 RBC 3.01 L (3.98-5.22) M/mm3 Hgb 9.1 L (11.2-15.7) gm/L Hct 27.3 L (34.1-44.9) % MCV 90.7 (79.4-94.8) fl MCH 30.2 (25.6-32.2) pg MCHC 33.3 (32.2-35.5) g/dl RDW Std Deviation 40.7 (36.4-46.3) fL Plt Count 143 L (182-369) K/mm3 MPV 11.5 (9.4-12.3) fl Med Orders - Current: Current Medications Diphenhydramine HCl (Benadryl) 25 mg IVPUSH Q6H PRN PRN Reason: Itching or Nausea Emollient Ointment (Lansinoh Hpa) 0 gm TOP ASDIRECTED PRN PRN Reason: Sore Nipples Fentanyl (Sublimaze) 50 mcg IVPUSH Q5M PRN PRN Reason: PAIN Ibuprofen (Motrin) 600 mg PO Q6H PRN PRN Reason: Pain Last Admin: 08/10/17 04:59 Dose: 600 mg Ondansetron HCl (Zofran) 4 mg IV Q8H PRN PRN Reason: Nausea/Vomiting Oxycodone/Acetaminophen (Percocet 325-5 Mg) 2 tab PO Q4H PRN PRN Reason: Pain (moderate 4-6) Last Admin: 08/10/17 00:34 Dose: 1 tab Discontinued Medications Acetaminophen (Tylenol) 975 mg PO NOW ONE Stop: 08/07/17 22:27 Last Admin: 08/07/17 22:50 Dose: 975 mg Carboprost Tromethamine (Hemabate Ds) Confirm Administered Dose 250 mcg .ROUTE .[facility] ONE Stop: 08/08/17 00:06 Cefazolin Sodium (Ancef) Confirm Administered Dose 2 gm .ROUTE .[facility] ONE Stop: 08/08/17 00:03 Citric Acid/Sodium Citrate (Bicitra Solution) 30 ml PO ONETIME ONE Stop: 08/07/17 23:20 Last Admin: 08/07/17 23:30 Dose: 30 ml Clindamycin Phosphate (Cleocin) Confirm Administered Dose 900 mg .ROUTE .[facility] ONE Stop: 08/07/17 23:23 Last Admin: 08/08/17 08:15 Dose: Not Given Diphenhydramine HCl (Benadryl) 25 mg IVPUSH Q6H PRN PRN Reason: Pruritis Diphenhydramine HCl (Benadryl) 25 mg IVPUSH Q6H PRN PRN Reason: Itching Ephedrine Sulfate (Ephedrine Sulfate) 5 mg IVPUSH ASDIRECTED PRN PRN Reason: Hypotension Esmolol HCl (Esmolol) Confirm Administered Dose 100 mg .ROUTE .[facility]K-[facility] ONE Stop: 08/08/17 00:34 Fentanyl (Sublimaze) 100 mcg EPIDUR ONETIME PRN PRN Reason: Pain Last Admin: 08/07/17 12:08 Dose: 100 mcg Fentanyl/Bupivacaine HCl (Fentanyl/Bupivacaine/Ns 2 Mcg-0.125% 100 Ml) 100 ml EPIDUR ASDIRECTED [facility] Last Admin: 08/07/17 20:24 Dose: 100 ml Lactated Ringer's (Ringers, Lactated) 1,000 mls @ 100 mls/hr IV ASDIRECTED [facility] Last Admin: 08/07/17 23:08 Dose: 100 mls/hr Oxytocin/Lactated Ringer's (Pitocin In Lr 20 Units/1,000 Ml) 20 unit in 1,000 mls @ 500 mls/hr IV TITRATE [facility] PRN Reason: Protocol Oxytocin/Lactated Ringer's (Pitocin In Lr 10 Units/1,000 Ml) 10 unit in 1,000 mls @ 12 mls/hr IV TITRATE [facility]; 2 MUNITS/MIN PRN Reason: Protocol Last Titration: 08/07/17 14:06 Dose: 20 munits/min, 120 mls/hr Oxytocin/Lactated Ringer's (Pitocin In Lr 20 Units/1,000 Ml) 20 unit in 1,000 mls @ 66 mls/hr IV TITRATE [facility]; 22 MUNITS/MIN PRN Reason: Protocol Last Admin: 08/07/17 15:08 Dose: 66 mls/hr Ampicillin Sodium 2 gm/ Sodium (Chloride) 100 mls @ 200 mls/hr IV Q6H [facility] Last Admin: 08/09/17 03:41 Dose: 200 mls/hr Gentamicin Sulfate 200 mg/ (Sodium Chloride) 105 mls @ 200 mls/hr IV ONETIME ONE Stop: 08/07/17 22:55 Last Admin: 08/07/17 22:56 Dose: 200 mls/hr Lactated Ringer's (Ringers, Lactated) Confirm Administered Dose 1,000 mls @ as directed .ROUTE .STK-MED ONE Stop: 08/07/17 22:40 Last Admin: 08/08/17 06:50 Dose: Not Given Cefazolin Sodium/Dextrose 2 gm (/ Premix) 50 mls @ 100 mls/hr IV ONETIME ONE Stop: 08/07/17 23:48 Last Admin: 08/08/17 08:15 Dose: Not Given Clindamycin Phosphate 900 mg/ (Sodium Chloride) 106 mls @ 100 mls/hr IV ONETIME ONE Stop: 08/08/17 00:22 Last Admin: 08/07/17 23:31 Dose: 100 mls/hr Lactated Ringer's (Ringers, Lactated) Confirm Administered Dose 1,000 mls @ as directed .ROUTE .STK-MED ONE Stop: 08/08/17 00:15 Lactated Ringer's (Ringers, Lactated) Confirm Administered Dose 1,000 mls @ as directed .ROUTE .STK-MED ONE Stop: 08/08/17 00:51 Clindamycin Phosphate 900 mg/ (Sodium Chloride) 106 mls @ 100 mls/hr IV Q8H [facility] Last Admin: 08/09/17 08:27 Dose: 100 mls/hr Dextrose/Lactated Ringer's (Dextrose 5%-Lactated Ringers) 1,000 mls @ 125 mls/ hr IV ASDIRECTED [facility] Stop: 08/08/17 09:54 Last Admin: 08/08/17 04:30 Dose: 125 mls/hr Gentamicin Sulfate 150 mg/ (Sodium Chloride) 103.75 mls @ 200 mls/hr IV Q8H [facility] Last Admin: 08/09/17 07:25 Dose: 200 mls/hr Lactated Ringer's (Ringers, Lactated) 1,000 mls @ 1,000 mls/hr IV .[facility] ONE Stop: 08/08/17 08:28 Last Admin: 08/08/17 08:20 Dose: 1,000 mls/hr Ketorolac Tromethamine (Toradol) Confirm Administered Dose 30 mg .ROUTE .STK- MED ONE Stop: 08/08/17 00:15 Labetalol HCl (Normodyne) 100 mg PO Q6H [facility] Last Admin: 08/08/17 06:50 Dose: Not Given Labetalol HCl (Normodyne) Confirm Administered Dose 100 mg .ROUTE .STK-MED ONE Stop: 08/08/17 01:08 Lidocaine/Epinephrine (Xylocaine-Mpf 2%-Epi 1:200,000) Confirm Administered Dose 20 ml .ROUTE .STK-MED ONE Stop: 08/08/17 00:03 Measles/Mumps/Rubella Vaccine Live (M-M-R Ii Vaccine) 0.5 ml SUBCUT .ONCE ONE Stop: 08/09/17 20:12 Last Admin: 08/10/17 00:30 Dose: 0.5 ml Meperidine HCl (Demerol) Confirm Administered Dose 50 mg .ROUTE .STK-MED ONE Stop: 08/08/17 00:58 Last Admin: 08/08/17 01:12 Dose: 12.5 mg Meperidine HCl (Demerol) 12.5 mg IVPUSH Q15M [facility] Stop: 08/08/17 01:31 Last Admin: 08/08/17 06:47 Dose: Not Given Methylergonovine Maleate (Methergine) Confirm Administered Dose 0.2 mg .ROUTE .STK-MED ONE Stop: 08/08/17 00:06 Last Admin: 08/08/17 00:16 Dose: 0.2 mg Metoclopramide HCl (Reglan) 10 mg IVPUSH ONETIME ONE Stop: 08/07/17 23:20 Last Admin: 08/07/17 23:28 Dose: 10 mg Misoprostol (Cytotec) Confirm Administered Dose 25 mcg .ROUTE .STK-MED ONE Stop: 08/06/17 10:22 Last Admin: 08/06/17 10:54 Dose: Not Given Misoprostol (Cytotec) 25 mcg VAG Q3H [facility] Stop: 08/06/17 22:41 Last Admin: 08/06/17 22:49 Dose: 25 mcg Misoprostol (Cytotec) Confirm Administered Dose 600 mcg .ROUTE .STK-MED ONE Stop: 08/08/17 00:03 Last Admin: 08/08/17 00:14 Dose: 600 mcg Morphine Sulfate (Duramorph Pf) Confirm Administered Dose 10 mg .ROUTE .STK-MED ONE Stop: 08/08/17 00:58 Nalbuphine HCl (Nubain) 10 mg IVPUSH Q2H PRN PRN Reason: pain Last Admin: 08/07/17 08:27 Dose: 10 mg Ondansetron HCl (Zofran) 4 mg IVPUSH ONETIME PRN PRN Reason: Nausea/Vomiting Oxytocin (Pitocin) Confirm Administered Dose 10 unit .ROUTE .STK-MED ONE Stop: 08/08/17 00:15 Sodium Chloride (Saline Flush) 10 ml FLUSH ASDIRECTED PRN PRN Reason: Keep Vein Open - Interaction Infant Disposition, : [place] in Room with Family Interaction: Not Interacting Infant Feeding: Bottle Fed Support Person: Significant Other - Recovery Exam Fundal Tone: Firm Fundal Level: 1 Fingerbreadths Below Umbilicus Fundal Placement: Midline Lochia Amount: Small Lochia Color: Rubra/Red Perineum Description: Intact, Minimal Bruising/Swelling Episiotomy/Laceration: None Bladder Status: Voiding Urinary Elimination: Voided Other Urinary Elimination, : just removed - Exam General: Alert, Oriented, Cooperative GI/Abdominal Exam: Soft, Non-Tender Extremities: Normal Inspection Skin: Warm, Dry, Intact Wound/Incisions: Healing Well, No Drainage - Problem List & Annotations (1) 41 weeks gestation of SNOMED Code(s): 98666990 Code(s): Z3A.41 - 41 WEEKS GESTATION OF Status: Acute Current Visit: Yes (2) Chorioamnionitis SNOMED Code(s): 53941343 Code(s): O41.1290 - CHORIOAMNIONITIS, UNSP TRIMESTER, NOT APPLICABLE OR UNSP Status: Acute Current Visit: Yes Qualifiers: Fetus number: single or unspecified fetus Trimester: third trimester Qualified Code(s): O41.1230 - Chorioamnionitis, third trimester, not applicable or unspecified (3) Failure to progress in second stage of labor SNOMED Code(s): 758582864 Code(s): O62.2 - OTHER UTERINE INERTIA Status: Acute Current Visit: Yes (4) S/P primary low transverse SNOMED Code(s): 565267304, 016186540, 155366217 Code(s): Z98.891 - HISTORY OF UTERINE SCAR FROM PREVIOUS SURGERY Status: Acute Current Visit: Yes - Problem List Review Problem List Initiated/Reviewed/Updated: Yes - My Orders Last 24 Hours: My Active Orders 08/09/17 20:11 Vaccines to be Administered [RC] PER UNIT ROUTINE 08/10/18 07:13 Consult to [facility] [CONS] Routine - Assessment Assessment:: 22 y/o G1 now P1001 POD#2 from [facility] at 41 1/7 wks - Plan Plan:: Chorioamnioitis * S/p amp/gent/clinda. Doing well without signs of infection PPH * Hb 9.1 on POD#1. No further monitoring as tolerating well Post op * Routine cares * Discharge home tomorrow
--- NOTE | 2017-08-11 01:33 | PCM.DCSUM1 ---
Discharge Summary - Discharge Data Discharge Date: 08/11/17 Discharge Disposition: Home, Self-Care 01 Condition: Good - Discharge Diagnosis/Problem(s) (1) 41 weeks gestation of SNOMED Code(s): 80174992 ICD Code: Z3A.41 - 41 WEEKS GESTATION OF Status: Acute Current Visit: Yes (2) Chorioamnionitis SNOMED Code(s): 50897349 ICD Code: O41.1290 - CHORIOAMNIONITIS, UNSP TRIMESTER, NOT APPLICABLE OR UNSP Status: Acute Current Visit: Yes Qualifiers: Fetus number: single or unspecified fetus Trimester: third trimester Qualified Code(s): O41.1230 - Chorioamnionitis, third trimester, not applicable or unspecified (3) Failure to progress in second stage of labor SNOMED Code(s): 224746138 ICD Code: O62.2 - OTHER UTERINE INERTIA Status: Acute Current Visit: Yes (4) S/P primary low transverse SNOMED Code(s): 652000640, 804265831, 073393482 ICD Code: Z98.891 - HISTORY OF UTERINE SCAR FROM PREVIOUS SURGERY Status: Acute Current Visit: Yes - Patient Summary/Data Operative Procedure(s) Performed: Primary low transverse Complications: None Consults: Consultations 08/10/17 07:13 Consult to Powerhouse Operator [CONS] Routine Recommended Follow-up Testing/Procedures: Follow up with Dr. Cheng in 2 weeks Hospital Course: 22 y/o presented at 40 6/7 wks for IOL for dates. She did make slow but stead progress to complete dilation. She did develop chorioamnionitis with pushing effort. Due to non reassuring status (tachycardia with some periods of minimal variability) and minimal descent after >1.5 hours of pushing , and concerns for OP presentation she was taken to the OR. noteable for atony and ~1800 cc blood loss. she was maintained on Amp, gent, and clinda for 24 hours. She otherwise did well and tolerated her post op anemia without need for transfusion. She was discharged home on POD#3. - Patient Instructions Diet: Regular Diet as Tolerated Activity: No Lifting Over 10 Pounds Driving: Do Not Drive (While taking narcotics ) Showering/Bathing: May Shower, No Tub Bathing/Swimming Wound/Incision Care: Keep Operative Site/Wound Site Clean and Dry Notify Provider of: Fever, Increased Pain, Swelling and Redness, Drainage, Nausea and/or Vomiting - Discharge Plan Prescriptions/Med Rec: Acetaminophen/oxyCODONE [Percocet 325-5 MG] 2 tab PO Q4H PRN #25 tablet PRN Reason: Pain (Moderate 4-6) Home Medications: Home Meds Calcium Carbonate [Tums] 750 mg PO 08/06/17 [History] Vits #93/Iron Fum/FA [ Formula Tablet] 08/06/17 [History] Ranitidine [Zantac] 150 mg .XX 08/06/17 [History] Acetaminophen/oxyCODONE [Percocet 325-5 MG] 2 tab PO Q4H PRN #25 tablet [Rx] Ibuprofen [IJD: Ibuprofen] 600 mg PO Q6H PRN tablet 08/09/17 [Rx] Patient Handouts: Delivery, Care After Referrals: Lamonte Cheng MD [Physician] - (2 weeks) - Discharge Summary/Plan Comment DC Time >30 min.: No - Patient Data Vitals - Most Recent: Last Vital Signs Temp 36.4 C 08/10/17 20:30 Pulse 96 08/10/17 20:30 Resp 16 08/10/17 20:30 BP 137/93 H 08/10/17 20:30 Pulse Ox 99 08/10/17 20:30 Weight - Most Recent: 105.097 kg I&O - Last 24 hours: Intake & Output 08/10/17 08/10/17 08/11/17 14:59 22:59 06:59 Intake Total 120 560 Balance 120 560 Med Orders - Current: Current Medications Diphenhydramine HCl (Benadryl) 25 mg IVPUSH Q6H PRN PRN Reason: Itching or Nausea Emollient Ointment (Lansinoh Hpa) 0 gm TOP ASDIRECTED PRN PRN Reason: Sore Nipples Fentanyl (Sublimaze) 50 mcg IVPUSH Q5M PRN PRN Reason: PAIN Ibuprofen (Motrin) 600 mg PO Q6H PRN PRN Reason: Pain Last Admin: 08/10/17 16:22 Dose: 600 mg Ondansetron HCl (Zofran) 4 mg IV Q8H PRN PRN Reason: Nausea/Vomiting Oxycodone/Acetaminophen (Percocet 325-5 Mg) 2 tab PO Q4H PRN PRN Reason: Pain (moderate 4-6) Last Admin: 08/10/17 00:34 Dose: 1 tab Discontinued Medications Acetaminophen (Tylenol) 975 mg PO NOW ONE Stop: 08/07/17 22:27 Last Admin: 08/07/17 22:50 Dose: 975 mg Bupivacaine HCl (Sensorcaine-Mpf 0.25%) 10 ml .ROUTE .STK-MED ONE Stop: 08/07/17 22:23 Carboprost Tromethamine (Hemabate Ds) Confirm Administered Dose 250 mcg .ROUTE .STK-MED ONE Stop: 08/08/17 00:06 Cefazolin Sodium (Ancef) Confirm Administered Dose 2 gm .ROUTE .STK-MED ONE Stop: 08/08/17 00:03 Citric Acid/Sodium Citrate (Bicitra Solution) 30 ml PO ONETIME ONE Stop: 08/07/17 23:20 Last Admin: 08/07/17 23:30 Dose: 30 ml Clindamycin Phosphate (Cleocin) Confirm Administered Dose 900 mg .ROUTE .STK- MED ONE Stop: 08/07/17 23:23 Last Admin: 08/08/17 08:15 Dose: Not Given Diphenhydramine HCl (Benadryl) 25 mg IVPUSH Q6H PRN PRN Reason: Pruritis Diphenhydramine HCl (Benadryl) 25 mg IVPUSH Q6H PRN PRN Reason: Itching Ephedrine Sulfate (Ephedrine Sulfate) 5 mg IVPUSH ASDIRECTED PRN PRN Reason: Hypotension Esmolol HCl (Esmolol) Confirm Administered Dose 100 mg .ROUTE .STK-MED ONE Stop: 08/08/17 00:34 Fentanyl (Sublimaze) 100 mcg EPIDUR ONETIME PRN PRN Reason: Pain Last Admin: 08/07/17 12:08 Dose: 100 mcg Fentanyl/Bupivacaine HCl (Fentanyl/Bupivacaine/Ns 2 Mcg-0.125% 100 Ml) 100 ml EPIDUR ASDIRECTED [facility] Last Admin: 08/07/17 20:24 Dose: 100 ml Lactated Ringer's (Ringers, Lactated) 1,000 mls @ 100 mls/hr IV ASDIRECTED [facility] Last Admin: 08/07/17 23:08 Dose: 100 mls/hr Oxytocin/Lactated Ringer's (Pitocin In Lr 20 Units/1,000 Ml) 20 unit in 1,000 mls @ 500 mls/hr IV TITRATE ALLYSSA PRN Reason: Protocol Oxytocin/Lactated Ringer's (Pitocin In Lr 10 Units/1,000 Ml) 10 unit in 1,000 mls @ 12 mls/hr IV TITRATE ALLYSSA; 2 MUNITS/MIN PRN Reason: Protocol Last Titration: 08/07/17 14:06 Dose: 20 munits/min, 120 mls/hr Oxytocin/Lactated Ringer's (Pitocin In Lr 20 Units/1,000 Ml) 20 unit in 1,000 mls @ 66 mls/hr IV TITRATE ALLYSSA; 22 MUNITS/MIN PRN Reason: Protocol Last Admin: 08/07/17 15:08 Dose: 66 mls/hr Ampicillin Sodium 2 gm/ Sodium (Chloride) 100 mls @ 200 mls/hr IV Q6H [facility]YSS[facility] Last Admin: 08/09/17 03:41 Dose: 200 mls/hr Gentamicin Sulfate 200 mg/ (Sodium Chloride) 105 mls @ 200 mls/hr IV ONETIME ONE Stop: 08/07/17 22:55 Last Admin: 08/07/17 22:56 Dose: 200 mls/hr Lactated Ringer's (Ringers, Lactated) Confirm Administered Dose 1,000 mls @ as directed .ROUTE .STK-MED ONE Stop: 08/07/17 22:40 Last Admin: 08/08/17 06:50 Dose: Not Given Cefazolin Sodium/Dextrose 2 gm (/ Premix) 50 mls @ 100 mls/hr IV ONETIME ONE Stop: 08/07/17 23:48 Last Admin: 08/08/17 08:15 Dose: Not Given Clindamycin Phosphate 900 mg/ (Sodium Chloride) 106 mls @ 100 mls/hr IV ONETIME ONE Stop: 08/08/17 00:22 Last Admin: 08/07/17 23:31 Dose: 100 mls/hr Lactated Ringer's (Ringers, Lactated) Confirm Administered Dose 1,000 mls @ as directed .ROUTE .STK-MED ONE Stop: 08/08/17 00:15 Lactated Ringer's (Ringers, Lactated) Confirm Administered Dose 1,000 mls @ as directed .ROUTE .STK-MED ONE Stop: 08/08/17 00:51 Clindamycin Phosphate 900 mg/ (Sodium Chloride) 106 mls @ 100 mls/hr IV Q8H [facility] Last Admin: 08/09/17 08:27 Dose: 100 mls/hr Dextrose/Lactated Ringer's (Dextrose 5%-Lactated Ringers) 1,000 mls @ 125 mls/ hr IV ASDIRECTED [facility] Stop: 08/08/17 09:54 Last Admin: 08/08/17 04:30 Dose: 125 mls/hr Gentamicin Sulfate 150 mg/ (Sodium Chloride) 103.75 mls @ 200 mls/hr IV Q8H [facility] Last Admin: 08/09/17 07:25 Dose: 200 mls/hr Lactated Ringer's (Ringers, Lactated) 1,000 mls @ 1,000 mls/hr IV .BOLUS ONE Stop: 08/08/17 08:28 Last Admin: 08/08/17 08:20 Dose: 1,000 mls/hr Ketorolac Tromethamine (Toradol) Confirm Administered Dose 30 mg .ROUTE .STK- MED ONE Stop: 08/08/17 00:15 Labetalol HCl (Normodyne) 100 mg PO Q6H [facility] Last Admin: 08/08/17 06:50 Dose: Not Given Labetalol HCl (Normodyne) Confirm Administered Dose 100 mg .ROUTE .STK-MED ONE Stop: 08/08/17 01:08 Lidocaine/Epinephrine (Xylocaine-Mpf 2%-Epi 1:200,000) Confirm Administered Dose 20 ml .ROUTE .STK-MED ONE Stop: 08/08/17 00:03 Measles/Mumps/Rubella Vaccine Live (M-M-R Ii Vaccine) 0.5 ml SUBCUT .ONCE ONE Stop: 08/09/17 20:12 Last Admin: 08/10/17 00:30 Dose: 0.5 ml Meperidine HCl (Demerol) Confirm Administered Dose 50 mg .ROUTE .STK-MED ONE Stop: 08/08/17 00:58 Last Admin: 08/08/17 01:12 Dose: 12.5 mg Meperidine HCl (Demerol) 12.5 mg IVPUSH Q15M [facility] Stop: 08/08/17 01:31 Last Admin: 08/08/17 06:47 Dose: Not Given Methylergonovine Maleate (Methergine) Confirm Administered Dose 0.2 mg .ROUTE .STK-MED ONE Stop: 08/08/17 00:06 Last Admin: 08/08/17 00:16 Dose: 0.2 mg Metoclopramide HCl (Reglan) 10 mg IVPUSH ONETIME ONE Stop: 08/07/17 23:20 Last Admin: 08/07/17 23:28 Dose: 10 mg Misoprostol (Cytotec) Confirm Administered Dose 25 mcg .ROUTE .STK-MED ONE Stop: 08/06/17 10:22 Last Admin: 08/06/17 10:54 Dose: Not Given Misoprostol (Cytotec) 25 mcg VAG Q3H [facility] Stop: 08/06/17 22:41 Last Admin: 08/06/17 22:49 Dose: 25 mcg Misoprostol (Cytotec) Confirm Administered Dose 600 mcg .ROUTE .STK-MED ONE Stop: 08/08/17 00:03 Last Admin: 08/08/17 00:14 Dose: 600 mcg Morphine Sulfate (Duramorph Pf) Confirm Administered Dose 10 mg .ROUTE .STK-MED ONE Stop: 08/08/17 00:58 Nalbuphine HCl (Nubain) 10 mg IVPUSH Q2H PRN PRN Reason: pain Last Admin: 08/07/17 08:27 Dose: 10 mg Ondansetron HCl (Zofran) 4 mg IVPUSH ONETIME PRN PRN Reason: Nausea/Vomiting Oxytocin (Pitocin) Confirm Administered Dose 10 unit .ROUTE .STK-MED ONE Stop: 08/08/17 00:15 Sodium Chloride (Saline Flush) 10 ml FLUSH ASDIRECTED PRN PRN Reason: Keep Vein Open *Q Meaningful Use (DIS) - VTE *Q VTE Criteria *Q: - Stroke *Q Stroke Criteria *Q: - AMI *Q AMI Criteria *Q:
== END 2017-08-11 09:44 | disposition home or self-care (01) | DRG 765 ==
LOC: JD.OB 00:02 → OBSVTOIN 08-08 00:02
PROVIDERS: ADMIT Obstetrics & Gynecology; ATTEND Obstetrics & Gynecology
PROC: 3E0P7VZ Introduction of Hormone into Female Reproductive, Via Natural or Artificial Opening (ICD-10-PCS; 2017-08-06)
PROC: 3E033VJ Introduction of Other Hormone into Peripheral Vein, Percutaneous Approach (ICD-10-PCS; 2017-08-06)
PROC: 00HU33Z Insertion of Infusion Device into Spinal Canal, Percutaneous Approach (ICD-10-PCS; 2017-08-06)
PROC: 3E0R3BZ Introduction of Anesthetic Agent into Spinal Canal, Percutaneous Approach (ICD-10-PCS; 2017-08-06)
PROC: 10D00Z1 Extraction of Products of Conception, Low, Open Approach (ICD-10-PCS; principal; 2017-08-08)
DX: O48.0 Post-term pregnancy (principal); O41.1230 Chorioamnionitis, third trimester, not applicable or unspecified; O75.2 Pyrexia during labor, not elsewhere classified; O72.1 Other immediate postpartum hemorrhage; Z37.0 Single live birth; Z3A.41 41 weeks gestation of pregnancy; O42.02 Full-term premature rupture of membranes, onset of labor within 24 hours of rupture; O62.0 Primary inadequate contractions; O77.0 Labor and delivery complicated by meconium in amniotic fluid; O64.8XX0 Obstructed labor due to other malposition and malpresentation, not applicable or unspecified; O90.81 Anemia of the puerperium
CPT/HCPCS: 36415; 51701; 51702; 80048; 84550; 85025; 85027; 85362; 85384; 85610; 86850; 86900; 86901; 90471; 90707; 94762; A9270-GY; J0290; J0690; J1580; J1885; J2175; J2210; J2270; J2300; J2590; J2765; J3010; J7030; J7042; J7120